=== PATIENT | female | born 1990 | race Caucasian/White ===

== ENCOUNTER 2017-05-02 23:55 | Emergency (ER) | payer SELFPAY ==
[~2017-05-02] VITALS: Ht 160 cm; Wt 43.1 kg
[2017-05-03 00:38] LABS: BASOPHILS % (AUTO) 0.6 % (0.0-2.0); EOSINOPHILS # (AUTO) 0.1 K/uL (0.0-0.7); EOSINOPHILS % (AUTO) 0.7 % (0.0-7.0); HEMATOCRIT 40.6 % (37-47); HEMOGLOBIN 13.2 G/DL (12.0-16.0); LYMPHOCYTES # (AUTO) 2.9 K/UL (0.8-4.8); LYMPHOCYTES % (AUTO) 35.9 % (20.5-51.5); MEAN CORPUSCULAR HEMOGLOBIN 27.8 UUG (27.0-31.0); MEAN CORPUSCULAR HGB CONC 33 g/dL (32.0-37.0); MEAN CORPUSCULAR VOLUME 85.5 FL (81.0-99.0); MONOCYTES # (AUTO) 0.9 K/UL (0.1-1.30); MONOCYTES % (AUTO) 10.8 % (0.0-11.0); PLATELET COUNT (AUTO) 382 K/UL (150-450); RED BLOOD CELL COUNT(AUTO) 4.75 MIL/UL (4.2-5.4); WHITE BLOOD COUNT (AUTO) 7.9 K/UL (4.0-11.2)
[2017-05-03 00:40] LABS: *URINE HCG, QUAL NEGATIVE (NEGATIVE)
[2017-05-03 00:42] LABS: *AMPHETAMINE, URINE POSITIVE (NEGATIVE); *BARBITURATE, URINE NEGATIVE (NEGATIVE); *CANNABINOID, URINE NEGATIVE (NEGATIVE); *COCCAINE, URINE POSITIVE (NEGATIVE); *OPIATE, URINE NEGATIVE (NEGATIVE); *PHENCYCLIDINE SCREEN,URINE NEGATIVE (NEGATIVE)
[2017-05-03 00:48] LABS: ALANINE AMINOTRANSFERASE 26 U/L (14-59); ALKALINE PHOSPHATASE 88 U/L (50-136); ASPARTATE AMINOTRANSFERASE 22 U/L (15-37); BILIRUBIN,DIRECT 0.1 mg/dL (0.0-0.2); BILIRUBIN,TOTAL 0.3 mg/dL (0.2-1.0); CARBON DIOXIDE 31 mmol/L (21-32); CHLORIDE 100 mmol/L (98-107); CREATININE 0.8 mg/dL (0.6-1.3); GLUCOSE 94 mg/dL (74-106); TOTAL PROTEIN, SERUM 9.1 g/dL (6.4-8.2); UREA NITROGEN, BLOOD 17 mg/dL (7-18)
[2017-05-03 00:52] LABS: ETHANOL < 3 MG/DL (0-0)
[2017-05-03 00:53] LABS: ACETAMINOPHEN < 2.0 ug/mL (10-30)
--- NOTE | 2017-05-03 00:59 | NUR ---
Call placed to [facility] for PET evaluation, ETA 90 minutes.
[2017-05-03 01:14] LABS: THYROID STIMULATING HORMONE 2.155 mIU/mL (0.358-3.740)
--- NOTE | 2017-05-03 01:45 | NUR ---
Patient requested food, provided.
--- NOTE | 2017-05-03 02:50 | NUR ---
Art Capilla at bedside for PET evaluation.
[2017-05-03] MEDS ORDERED: OLANZAPINE 5 MG TABLET PO ONE (03:00)
[2017-05-03] MEDS ORDERED: LORAZEPAM 0.5 MG TABLET PO ONE (03:00)
[2017-05-03] MEDS ORDERED: LORAZEPAM 1 MG TABLET ONE (03:12)
[2017-05-03] MEDS ORDERED: OLANZAPINE 5 MG TABLET ONE (03:12)
--- NOTE | 2017-05-03 04:10 | NUR ---
Patient is resting comfortably in bed with eyes closed
--- NOTE | 2017-05-03 05:29 | NUR ---
Patient is resting comfortably in bed with eyes closed
--- NOTE | 2017-05-03 06:25 | NUR ---
Patient given written and verbal discharge instructions. Patient verbalizes understanding of instructions. Patient is ambulatory with steady gait. Refuses offer of senior living placement. Patient given list of available shelters in surrounding area.
== END 2017-05-03 06:26 | disposition home or self-care (01) ==
LOC: ER 23:58
DX: S61.511A Laceration without foreign body of right wrist, initial encounter (principal); S61.512A Laceration without foreign body of left wrist, initial encounter; F32.9 Major depressive disorder, single episode, unspecified; F41.9 Anxiety disorder, unspecified; F15.10 Other stimulant abuse, uncomplicated; F14.10 Cocaine abuse, uncomplicated; F17.200 Nicotine dependence, unspecified, uncomplicated; W26.0XXA Contact with knife, initial encounter; Y93.89 Activity, other specified; Y92.9 Unspecified place or not applicable; Y99.9 Unspecified external cause status
CPT/HCPCS: 36415; 80307; 84443; 84703; 85025; A4663; G0480; G0480-TC

== ENCOUNTER 2017-05-06 10:18 | Emergency (ER) | payer SELFPAY ==
[~2017-05-06] VITALS: Ht 157.5 cm; Wt 45.4 kg
--- NOTE | 2017-05-06 10:37 | NUR ---
Pt states she is suicidal, plan was to cut her wrists, denies HI and hallucinations. Pt denies CP, SOB, dizziness, n/v, no other complaints, no distress noted.
[2017-05-06 10:54] LABS: BASOPHILS # (AUTO) 0.1 K/uL (0.0-8.0); BASOPHILS % (AUTO) 0.8 % (0.0-2.0); EOSINOPHILS # (AUTO) 0.1 K/uL (0.0-0.7); EOSINOPHILS % (AUTO) 0.7 % (0.0-7.0); HEMOGLOBIN 11.7 G/DL (12.0-16.0); LYMPHOCYTES # (AUTO) 1.5 K/UL (0.8-4.8); LYMPHOCYTES % (AUTO) 9.3 % (20.5-51.5); MEAN CORPUSCULAR HEMOGLOBIN 28.2 UUG (27.0-31.0); MEAN CORPUSCULAR HGB CONC 33 g/dL (32.0-37.0); MEAN CORPUSCULAR VOLUME 84.7 FL (81.0-99.0); MONOCYTES # (AUTO) 0.5 K/UL (0.1-1.30); MONOCYTES % (AUTO) 3.3 % (0.0-11.0); NEUTROPHILS # (AUTO) 13.6 K/UL (1.8-8.9); NEUTROPHILS % (AUTO) 85.9 % (38.5-71.5); PLATELET COUNT (AUTO) 365 K/UL (150-450); RED BLOOD CELL COUNT(AUTO) 4.13 MIL/UL (4.2-5.4); WHITE BLOOD COUNT (AUTO) 15.8 K/UL (4.0-11.2)
[2017-05-06 10:58] LABS: CARBON DIOXIDE 26 mmol/L (21-32); CHLORIDE 103 mmol/L (98-107); CREATININE 0.9 mg/dL (0.6-1.3); GLUCOSE 77 mg/dL (74-106); POTASSIUM 3.3 mmol/L (3.5-5.1); UREA NITROGEN, BLOOD 15 mg/dL (7-18)
[2017-05-06 11:03] LABS: ALANINE AMINOTRANSFERASE 24 U/L (14-59); ALKALINE PHOSPHATASE 92 U/L (50-136); ASPARTATE AMINOTRANSFERASE 25 U/L (15-37); BILIRUBIN,DIRECT 0.1 mg/dL (0.0-0.2); BILIRUBIN,TOTAL 0.2 mg/dL (0.2-1.0); ETHANOL < 3 MG/DL (0-0); TOTAL PROTEIN, SERUM 7.9 g/dL (6.4-8.2)
[2017-05-06 11:07] LABS: ACETAMINOPHEN < 2.0 ug/mL (10-30)
--- NOTE | 2017-05-06 11:37 | NUR ---
Pt cleared medically. Psych general distillery worker was called.
[2017-05-06 11:38] LABS: *BILIRUBIN,URIN NEGATIVE (NEGATIVE); *BLOOD, URINE NEGATIVE (NEGATIVE); *CLARITY,URINE CLEAR (CLEAR); *COLOR,URINE YELLOW (YELLOW); *KETONES,URINE NEGATIVE (NEGATIVE); *PROTEIN,URINE 1+ (NEGATIVE); *UROBILINOGEN,URINE 0.2 E.U./dl (NORMAL); LEUKOCYTE ESTERASE ,URINE NEGATIVE (NEGATIVE); NITRITE, URINE NEGATIVE (NEGATIVE); PH,URINE 6.5 (5.0-8.0); UGLUCOSE NEGATIVE (NEGATIVE)
[2017-05-06 11:41] LABS: *URINE HCG, QUAL NEGATIVE (NEGATIVE)
[2017-05-06 11:44] LABS: BACTERIA,URINE FEW /HPF (NONE SEEN); RBC,URINE NONE SEEN /HPF (0-3); SQUAMOUS EPITHELIAL CELL,UR MODERATE /HPF (NONE SEEN)
[2017-05-06 11:49] LABS: *AMPHETAMINE, URINE POSITIVE (NEGATIVE); *BARBITURATE, URINE NEGATIVE (NEGATIVE); *CANNABINOID, URINE POSITIVE (NEGATIVE); *COCCAINE, URINE NEGATIVE (NEGATIVE); *OPIATE, URINE NEGATIVE (NEGATIVE); *PHENCYCLIDINE SCREEN,URINE NEGATIVE (NEGATIVE)
--- NOTE | 2017-05-06 13:08 | NUR ---
Called psych automated equipment engineer technician again, marc
[2017-05-06] MEDS ORDERED: OLANZAPINE 5 MG TABLET PO ONE (13:45)
[2017-05-06] MEDS ORDERED: OLANZAPINE 5 MG TABLET ONE (14:00)
--- NOTE | 2017-05-06 14:47 | NUR ---
Zyprexa administered. Tam, will return for evaluation.
[2017-05-06] MEDS ORDERED: LORAZEPAM 0.5 MG TABLET PO ONE (15:45)
--- NOTE | 2017-05-06 16:10 | NUR ---
Per Keara Sesay, pt not placed on hold. Will give taxi voucher to go to [facility].
--- NOTE | 2017-05-06 16:14 | NUR ---
Called report to FREDRICK Quarles, at [facility], .
[2017-05-06] MEDS ORDERED: LORAZEPAM 1 MG TABLET ONE (16:31)
--- NOTE | 2017-05-06 16:36 | NUR ---
Gave pt d/c instructions, verbalized understanding.
== END 2017-05-06 16:40 | disposition home or self-care (01) ==
LOC: ER 10:20
DX: Z02.89 Encounter for other administrative examinations (principal); F32.9 Major depressive disorder, single episode, unspecified; R45.851 Suicidal ideations; F17.200 Nicotine dependence, unspecified, uncomplicated; J45.909 Unspecified asthma, uncomplicated
CPT/HCPCS: 36415; 71010; 80048; 80076; 80307; 81001; 84703; 85025; 93005; 99285; A4663; G0480 ×2; G0481